=== PATIENT | female | born 1990 | race Caucasian/White ===

== ENCOUNTER 2017-03-14 21:28 | Emergency (ER) | payer MEDICARE, MEDICAID ==
--- NOTE | ~2017-03-14 | ER ---
PATIENT'S NAME: QUANG HEDRICK [facility] AGE: 26 Y [address] ROOM: [place], [place] [address] LOCATION: [facility] ADMIT DATE: 03/14/2017 ER/Outpatient Report DISCHARGE DATE: 03/14/2017 FAMILY PHYSICIAN: PHYSICIAN, NO ATTENDING PHYSICIAN: Pantera Wolf CHIEF COMPLAINT: Shortness of breath, chest discomfort, and anxiety. TIME OF THE PATIENT ARRIVAL: 2128 hours. TIME OF THE PATIENT EVALUATION: 2140 hours. HISTORY OF PRESENT ILLNESS: This is a 26-year-old female who presents to the ER who states that she was not feeling well. She states she has been under lot of stress lately. She recently broke up with her boyfriend and her boyfriend is now at [employer] [facility]. The patient states that she has been dealing with a lot of acid reflux. She states she has been taking Tums daily for it, but it keeps returning. She does not take anything daily for her acid reflux and describes her pain as a burning type pain in nature. She states it does sometimes radiate up into her chest and when she got on the Internet and it told her that she could possibly be having a heart attack, so that is [facility]. The patient also tells us that she took 3 of her Topamax medications around 4 o'clock this afternoon. She states that she did take these for an appetite suppressant and was not trying to hurt herself. She states that she is normally supposed to take it twice a day, but she decided to take 3 of the tablets for her appetite suppressant. She does not feel suicidal. She states that she has had some anxiety and depression, but is due to see her therapist tomorrow for that. She denies any recent illness. No fever or chills. No nausea or vomiting. No diaphoresis. ALLERGIES: NO KNOWN ALLERGIES. MEDICATIONS: Please see medication list nurse's notes. PAST MEDICAL HISTORY: 1. Anxiety. 2. Acid reflux. 3. Schizophrenia. 4. Borderline personality disorder. PATIENT'S NAME: QUANG HEDRICK [facility] AGE: 26 Y [address] ROOM: [place], [place] [address] LOCATION: [facility] ADMIT DATE: 03/14/2017 ER/Outpatient Report DISCHARGE DATE: 03/14/2017 FAMILY PHYSICIAN: PHYSICIAN, NO ATTENDING PHYSICIAN: Pantera Wolf PAST SURGICAL HISTORY: None. SOCIAL HISTORY: She does smoke cigarettes and also marijuana. Denies any alcohol use. REVIEW OF SYSTEMS: A 10-point review of system was completed and was negative with the exception of those discussed in the HPI. PHYSICAL EXAMINATION: VITAL SIGNS: Height 5 feet, 5 inches stated, weight 87.5 kg taken, blood pressure is 100/58, pulse 73, respirations 16, temperature 98.1 degrees tympanically, and saturations 98% on room air. Julieta Coma Score is 15. GENERAL: Alert, well-developed female, in no acute distress. HEENT: Head: Normocephalic. Eyes: Pupils are equal and reactive to light. She does display moist mucous membranes. LUNGS: Clear to auscultation bilaterally. No wheezes or crackles. Normal respiratory effort. HEART: Regular rate and rhythm. ABDOMEN: Soft, it is nontender, she has good bowel sounds throughout, no masses are palpated. EXTREMITIES: No clubbing, cyanosis, has full range of motion of all limbs. SKIN: Warm, dry, and intact. LABORATORY DATA: CBC: White count is 12.8, hemoglobin is 12.9, and platelets 180. INR is 0.98. CMS was unremarkable. Magnesium is 2.2. Alcohol level is less than 0.010. Amylase is 34, lipase is 126, CPK is 189, CK-MB is 2.4, troponin I is less than 0.040, acetaminophen is less than 2.0, salicylate is 5.2. H. pylori was negative. Urinalysis is negative for any infection. Urine hCG was negative. Urine drug screen was negative. EKG shows sinus rhythm. Chest x- ray was negative for any infiltrate. IMPRESSION: 1. Acid reflux. 2. Anxiety. 3. History of schizophrenia and borderline personality disorder. ASSESSMENT AND PLAN: The patient did rest comfortably her entire stay here in the emergency room. Her abdomen remained nonsurgical. I advised her to take Prilosec daily and she may pick that up [id number]. She may take Tums or Maalox as needed for any breakthrough pain, monitor her symptoms, and I would like her to PATIENT'S NAME: QUANG HEDRICK [facility] AGE: 26 Y [address] ROOM: [place], [place] [address] LOCATION: [facility] ADMIT DATE: 03/14/2017 ER/Outpatient Report DISCHARGE DATE: 03/14/2017 FAMILY PHYSICIAN: JAMA TEJADA ATTENDING PHYSICIAN: Pantera Wolf follow up with their therapist tomorrow. The patient understands and agrees with care. FRANKIE ALTMAN PA-C FOR MD JEANCARLOS GRULLON/shawn /[id number] d: 03/15/1752 t: 03/21/17 0931, OUTPATIENT REPORT
[~2017-03-14 21:28] MED LIST: "\\\"PREP SPRAY\\\"-TIN4 OZ"; GLUCOPHAGE500 MG PO; INVEGA SUS156 MG/1 M IM; INVEGA SUS234 MG/1.5 IM; INVEGA TRI819 MG/2.6 IM; LAMICTAL100 MG PO; NICODERM (HABIT14 MG TRANS; PROZAC20 MG PO; PROZAC40 MG PO; STRATTERA40 MG PO; TENEX1 MG PO; VISTARIL25 M1 PO; VISTARIL25 MG PO; ZYPREXA10 MG PO; ZYPREXA5 MG PO
[2017-03-14 22:35] LABS: BASOPHIL % 0.2 %; EOSINOPHIL # 0.1 K/uL (0.0-0.5); EOSINOPHIL % 0.8 %; HEMOGLOBIN 12.9 g/dL (11.0-15.0); IMMATURE GRANULOCYTE # 0.1 K/uL (0.0-0.3); IMMATURE GRANULOCYTE % 0.7 %; LYMPHOCYTE # 4.8 K/uL (0.8-4.0); LYMPHOCYTE % 37.3 %; MCH 30.4 pg (27.0-34.0); MCHC 33.9 gm/dL (32.0-36.5); MCV 89.4 fl (83.0-98.0); MONOCYTE % 7.8 %; MPV 9.7 fl (9.4-12.4); NEUTROPHIL # (ANC) 6.8 K/uL (1.8-7.8); NEUTROPHIL % 53.2 %; NRBC % 0 /100WBC (0-0.00); PLATELET COUNT 280 K/uL (150-450); RBC 4.25 M/uL (3.50-5.00); RDW-CV 13.4 % (11.9-14.6); WBC 12.8 K/uL (4.0-11.0)
[2017-03-14 22:41] LABS: BILIRUBIN URINE NEGATIVE (NEGATIVE); BLOOD URINE NEGATIVE /UL (NEGATIVE); COLOR URINE YELLOW (YELLOW); GLUCOSE URINE NEGATIVE (NEGATIVE); KETONE URINE NEGATIVE (NEGATIVE); LEUKOCYTES URINE NEGATIVE /UL (NEGATIVE); NITRITE URINE NEGATIVE (NEGATIVE); PROTEIN URINE NEGATIVE (NEGATIVE); TURBIDITY URINE CLEAR (CLEAR); UROBILINOGEN URINE NORMAL (NORMAL)
[2017-03-14 22:47] LABS: INR - (THERAPEUTIC) 0.98 (0.92-1.07); PROTIME 10.3 SECONDS (9.8-11.4); PTT 26 SECONDS (25-32)
[2017-03-14 22:52] LABS: ALBUMIN 3.7 gm/dL (3.5-5.0); ALK PHOS 115 IU/L (33-138); ALT 39 IU/L (12-78); ANION GAP 14.1 (10.0-19.0); AST 21 IU/L (10-40); BLOOD UREA NITROGEN 8 mg/dL (6-24); CALCIUM 9.3 mg/dL (8.5-10.5); CHLORIDE 109 mMol/L (96-110); CO2 23 mMol/L (22-32); CPK 289 IU/L (21-215); ESTIMATED GFR (MDRD EQUATION) > 60; MAGNESIUM 2.2 mg/dL (1.8-2.6); POTASSIUM 4.1 mMol/L (3.7-5.1); SODIUM 142 mMol/L (135-145); TOTAL BILIRUBIN 0.4 mg/dL (0.0-1.5); TOTAL PROTEIN 7.3 g/dL (6.0-8.4)
[2017-03-14 22:58] LABS: BARBITURATE NEGATIVE (NEGATIVE); COCAINE NEGATIVE (NEGATIVE); OPIATES NEGATIVE (NEGATIVE)
[2017-03-14 22:59] LABS: AMPHETAMINE NEGATIVE (NEGATIVE)
== END 2017-03-14 23:44 | disposition disaster alternative care site (69) ==
LOC: GMED 21:28
PROVIDERS: Emergency Medicine
DX: F41.9 Anxiety disorder, unspecified (principal); K21.9 Gastro-esophageal reflux disease without esophagitis; F20.9 Schizophrenia, unspecified; F17.210 Nicotine dependence, cigarettes, uncomplicated
CPT/HCPCS: G0480